=== PATIENT | male | born 1975 | race African-American/Black ===

== ENCOUNTER 2018-05-15 21:50 | Emergency (ER) | payer SELFPAY ==
[~2018-05-15] VITALS: Ht 185.4 cm; Wt 154.2 kg
[2018-05-16 02:54] VITALS: BP 137/100
== END 2018-05-16 03:15 | disposition home or self-care (01) ==
LOC: ER 21:58
DX: M79.605 Pain in left leg (principal); T88.7XXA Unspecified adverse effect of drug or medicament, initial encounter; I10 Essential (primary) hypertension; Z88.1 Allergy status to other antibiotic agents; Y92.89 Other specified places as the place of occurrence of the external cause
CPT/HCPCS: 93971